=== PATIENT | female | born 1940 | race Caucasian/White ===

== ENCOUNTER 2021-10-02 03:04 | Inpatient (IN) | payer OTHER ==
[2021-10-02] VITALS (9 sets, daily range): BP systolic 104–150; BP diastolic 53–69
[~2021-10-02] VITALS: Ht 172.7 cm; Wt 81.6 kg
[~2021-10-02 03:04] MED LIST changes: -ASPIRIN ADULT L81 M2 PO; -HYDROCODONE-AC1 EAC1 PO
[2021-10-02 03:45] LABS: BASO % 0.4 % (0.0-1.0); EOS # 0.2 10*3/uL (0.0-0.4); EOS % 1.8 % (1.0-4.0); HEMATOCRIT 39.6 % (37.0-47.0); LYMPH # 1.9 10*3/uL (1.3-4.4); LYMPH % 20.1 % (27.0-41.0); MEAN CELL VOLUME 96.4 fl (81.0-99.0); MEAN CORPUSCULAR HGB 30.4 pg (27.0-31.0); MEAN CORPUSCULAR HGB CONC 31.6 g/dl (33.0-37.0); MEAN PLATELET VOLUME 13.2 fl (9.6-12.3); MONO # 0.7 10*3/uL (0.1-1.0); MONO % 7.8 % (3.0-9.0); NEUT # 6.4 10*3/uL (2.3-7.9); NEUT % 69.4 % (47.0-73.0); PLATELET COUNT AUTOMATED 118 10*3/uL (130-400); RED BLOOD COUNT 4.11 10*6/uL (4.10-5.10); RED CELL DISTRI WIDTH 13.1 % (0-14.5); WHITE BLOOD COUNT 9.3 10*3/uL (4.8-10.8)
[2021-10-02 03:58] LABS: CREATININE 1.13 mg/dL (0.55-1.02); POTASSIUM 4.1 mmol/L (3.5-5.1)
[2021-10-03] VITALS: BP 126/54
[2021-10-03 06:49] LABS: BASO % 0.3 % (0.0-1.0); EOS # 0.1 10*3/uL (0.0-0.4); EOS % 1.2 % (1.0-4.0); HEMATOCRIT 34.9 % (37.0-47.0); LYMPH # 2.1 10*3/uL (1.3-4.4); LYMPH % 24.2 % (27.0-41.0); MEAN CELL VOLUME 96.1 fl (81.0-99.0); MEAN CORPUSCULAR HGB 30.9 pg (27.0-31.0); MEAN CORPUSCULAR HGB CONC 32.1 g/dl (33.0-37.0); MEAN PLATELET VOLUME 13.6 fl (9.6-12.3); MONO # 1.3 10*3/uL (0.1-1.0); MONO % 14.1 % (3.0-9.0); NEUT # 5.3 10*3/uL (2.3-7.9); NEUT % 59.9 % (47.0-73.0); PLATELET COUNT AUTOMATED 113 10*3/uL (130-400); RED BLOOD COUNT 3.63 10*6/uL (4.10-5.10); RED CELL DISTRI WIDTH 13.5 % (0-14.5); WHITE BLOOD COUNT 8.8 10*3/uL (4.8-10.8)
[2021-10-03 07:05] LABS: POTASSIUM 4.2 mmol/L (3.5-5.1)
[2021-10-03 07:13] LABS: CREATININE 1.18 mg/dL (0.55-1.02); FREE T4 1.06 ng/dl (0.76-1.46); THYROID STIM HORMONE (HS) 1.95 uIU/ml (0.358-4.75); TOTAL PROTEIN 6.6 gm/dL (6.4-8.2)
[2021-10-03 08:00] VITALS: BP 154/50
[2021-10-03 12:00] VITALS: BP 114/50
[2021-10-03 16:00] VITALS: BP 111/52
[2021-10-03 17:25] VITALS: BP 116/74
[2021-10-03 20:00] VITALS: BP 131/54
[2021-10-04] VITALS: BP 153/61
[2021-10-04 06:28] LABS: BASO % 0.3 % (0.0-1.0); EOS # 0.2 10*3/uL (0.0-0.4); EOS % 1.7 % (1.0-4.0); HEMATOCRIT 34.1 % (37.0-47.0); LYMPH # 2.3 10*3/uL (1.3-4.4); LYMPH % 26.1 % (27.0-41.0); MEAN CELL VOLUME 96.1 fl (81.0-99.0); MEAN CORPUSCULAR HGB 30.7 pg (27.0-31.0); MEAN PLATELET VOLUME 13.3 fl (9.6-12.3); MONO # 1.3 10*3/uL (0.1-1.0); MONO % 14.4 % (3.0-9.0); PLATELET COUNT AUTOMATED 95 10*3/uL (130-400); RED BLOOD COUNT 3.55 10*6/uL (4.10-5.10); RED CELL DISTRI WIDTH 13.4 % (0-14.5); WHITE BLOOD COUNT 8.7 10*3/uL (4.8-10.8)
[2021-10-04 06:42] LABS: BUN 26 mg/dl (7-24); CHLORIDE 105 mmol/L (98-107); CREATININE 0.88 mg/dL (0.55-1.02); POTASSIUM 4.1 mmol/L (3.5-5.1); SODIUM 138 mmol/L (136-145)
[2021-10-04 08:00] VITALS: BP 110/52; BP 137/60
[2021-10-04 12:00] VITALS: BP 121/50
[2021-10-04 16:00] VITALS: BP 124/57
[2021-10-04 20:00] VITALS: BP 111/63
[2021-10-04 23:16] VITALS: BP 107/49
[2021-10-05 06:19] LABS: BASO # 0.1 10*3/uL (0.0-0.1); BASO % 0.5 % (0.0-1.0); EOS # 0.1 10*3/uL (0.0-0.4); EOS % 1.4 % (1.0-4.0); HEMATOCRIT 32.7 % (37.0-47.0); LYMPH # 2.6 10*3/uL (1.3-4.4); LYMPH % 26.7 % (27.0-41.0); MEAN CELL VOLUME 96.2 fl (81.0-99.0); MEAN CORPUSCULAR HGB 30.9 pg (27.0-31.0); MEAN CORPUSCULAR HGB CONC 32.1 g/dl (33.0-37.0); MEAN PLATELET VOLUME 13.7 fl (9.6-12.3); MONO # 1.5 10*3/uL (0.1-1.0); NEUT # 5.5 10*3/uL (2.3-7.9); PLATELET COUNT AUTOMATED 103 10*3/uL (130-400); RED CELL DISTRI WIDTH 13.4 % (0-14.5); WHITE BLOOD COUNT 9.8 10*3/uL (4.8-10.8)
[2021-10-05 08:00] VITALS: BP 150/68
[2021-10-05 12:00] VITALS: BP 117/46
[2021-10-05 16:00] VITALS: BP 147/76
[2021-10-05 20:00] VITALS: BP 144/82
[2021-10-06] VITALS: BP 149/63
[2021-10-06 06:16] LABS: BASO # 0.1 10*3/uL (0.0-0.1); BASO % 0.8 % (0.0-1.0); EOS # 0.2 10*3/uL (0.0-0.4); EOS % 2.5 % (1.0-4.0); HEMATOCRIT 34.2 % (37.0-47.0); LYMPH # 2.7 10*3/uL (1.3-4.4); LYMPH % 29.9 % (27.0-41.0); MEAN CELL VOLUME 95.5 fl (81.0-99.0); MEAN CORPUSCULAR HGB 30.7 pg (27.0-31.0); MEAN CORPUSCULAR HGB CONC 32.2 g/dl (33.0-37.0); MEAN PLATELET VOLUME 13.2 fl (9.6-12.3); MONO # 1.2 10*3/uL (0.1-1.0); MONO % 13.9 % (3.0-9.0); NEUT # 4.7 10*3/uL (2.3-7.9); NEUT % 52.3 % (47.0-73.0); PLATELET COUNT AUTOMATED 123 10*3/uL (130-400); RED BLOOD COUNT 3.58 10*6/uL (4.10-5.10); RED CELL DISTRI WIDTH 13.2 % (0-14.5)
[2021-10-06 06:37] LABS: BUN 26 mg/dl (7-24); CHLORIDE 105 mmol/L (98-107); CREATININE 0.85 mg/dL (0.55-1.02); POTASSIUM 3.9 mmol/L (3.5-5.1); SODIUM 138 mmol/L (136-145)
[2021-10-06 08:00] VITALS: BP 171/87
[2021-10-06 12:00] VITALS: BP 106/59
[2021-10-06 16:00] VITALS: BP 128/50
[2021-10-06 20:00] VITALS: BP 140/68
[2021-10-07] VITALS: BP 150/84
[2021-10-07 06:26] LABS: CHLORIDE 104 mmol/L (98-107); CREATININE 0.77 mg/dL (0.55-1.02); SODIUM 137 mmol/L (136-145)
[2021-10-07 06:49] LABS: BUN 21 mg/dl (7-24)
[2021-10-07 06:54] LABS: BASO # 0.1 10*3/uL (0.0-0.1); BASO % 0.7 % (0.0-1.0); EOS # 0.2 10*3/uL (0.0-0.4); EOS % 2.4 % (1.0-4.0); LYMPH # 2.8 10*3/uL (1.3-4.4); LYMPH % 28.3 % (27.0-41.0); MEAN CELL VOLUME 94.7 fl (81.0-99.0); MEAN CORPUSCULAR HGB 30.9 pg (27.0-31.0); MEAN CORPUSCULAR HGB CONC 32.6 g/dl (33.0-37.0); MEAN PLATELET VOLUME 13.4 fl (9.6-12.3); MONO # 1.5 10*3/uL (0.1-1.0); MONO % 14.8 % (3.0-9.0); NEUT # 5.3 10*3/uL (2.3-7.9); RED BLOOD COUNT 3.59 10*6/uL (4.10-5.10); RED CELL DISTRI WIDTH 13.3 % (0-14.5); WHITE BLOOD COUNT 9.9 10*3/uL (4.8-10.8)
[2021-10-07 06:56] LABS: PLATELET COUNT AUTOMATED 166 10*3/uL (130-400)
[2021-10-07 08:07] VITALS: BP 148/78
[2021-10-07] MEDS ORDERED: HYDROCODONE-AC1 EAC1 PO (11:44)
[2021-10-07] MEDS ORDERED: ASPIRIN ADULT L81 M2 PO (11:44)
[2021-10-07 12:00] VITALS: BP 118/76
== END 2021-10-07 16:05 | DRG 480 ==
LOC: ED 03:04 → 4E 04:25 → EDHOLD 04:25 → 4E 11:48
PROVIDERS: Internal Medicine; Orthopaedic Surgery; Student in an Organized Health Care Education/Training Program; ADMIT Internal Medicine; ATTEND Internal Medicine
PROC: 0QS606Z Reposition Right Upper Femur with Intramedullary Internal Fixation Device, Open Approach (ICD-10-PCS; principal; 2021-10-02)
PROC: 3E0T3BZ Introduction of Anesthetic Agent into Peripheral Nerves and Plexi, Percutaneous Approach (ICD-10-PCS; 2021-10-02)
DX: S72.144A Nondisplaced intertrochanteric fracture of right femur, initial encounter for closed fracture (principal); N17.0 Acute kidney failure with tubular necrosis; E43 Unspecified severe protein-calorie malnutrition; I13.0 Hypertensive heart and chronic kidney disease with heart failure and stage 1 through stage 4 chronic kidney disease, or unspecified chronic kidney disease; E83.41 Hypermagnesemia; N18.9 Chronic kidney disease, unspecified; R73.9 Hyperglycemia, unspecified; R26.2 Difficulty in walking, not elsewhere classified; D69.6 Thrombocytopenia, unspecified; I50.9 Heart failure, unspecified; Z20.822 Contact with and (suspected) exposure to COVID-19; Z90.710 Acquired absence of both cervix and uterus; Z82.49 Family history of ischemic heart disease and other diseases of the circulatory system; Z82.5 Family history of asthma and other chronic lower respiratory diseases; Z95.810 Presence of automatic (implantable) cardiac defibrillator; Z79.899 Other long term (current) drug therapy

== ENCOUNTER → 2021-10-02 | Day surgery (SDC) | payer OTHER ==
[~2021-10-02] VITALS: Ht 172.7 cm; Wt 70.3 kg
[~2021-10-02] MED LIST: AMBIEN10 M1 PO; ASPIRIN ADULT L81 M2 PO; CARVEDILOL12.5 MG PO; Depakote250 MG PO; ENTRESTO 49 MG1 EACH PO; HYDROCODONE-AC1 EAC1 PO; MAGNESIUM-VIT1 EAC1 PO; SIMVASTATIN40 MG PO; SYNTHROID,LEV125 MCG PO; VICODIN 500 MG-1 TAB PO
== END | disposition home or self-care (01) ==
LOC: SDC 09-27 09:30
PROVIDERS: ATTEND Ophthalmology
DX: H25.811 Combined forms of age-related cataract, right eye (principal); I11.0 Hypertensive heart disease with heart failure; I50.9 Heart failure, unspecified; F31.9 Bipolar disorder, unspecified; Z90.710 Acquired absence of both cervix and uterus; Z95.810 Presence of automatic (implantable) cardiac defibrillator; Z79.899 Other long term (current) drug therapy

== ENCOUNTER → 2021-10-18 | Outpatient (CLI) | payer OTHER ==
[~2021-10-18] MED LIST changes: +ASPIRIN ADULT L81 M2 PO; +HYDROCODONE-AC1 EAC1 PO
== END ==
LOC: ORTHO 00:26
PROVIDERS: ATTEND Orthopaedic Surgery
DX: S72.144D Nondisplaced intertrochanteric fracture of right femur, subsequent encounter for closed fracture with routine healing (principal); X58.XXXD Exposure to other specified factors, subsequent encounter

== ENCOUNTER → 2022-08-19 | Outpatient (CLI) | payer OTHER | END | disposition home or self-care (01) | LOC: CARD 08-13 09:30 | PROVIDERS: ATTEND Physician Assistant | DX: I35.1 Nonrheumatic aortic (valve) insufficiency (principal); I50.20 Unspecified systolic (congestive) heart failure; Z79.899 Other long term (current) drug therapy ==

== ENCOUNTER 2025-06-17 20:14 | Emergency (ER) | payer MEDICARE ==
[~2025-06-17] VITALS: Wt 72.5 kg
[2025-06-17] MEDS ORDERED: SUPER B-50 COM1 EAC2 PO (20:26)
[2025-06-17] MEDS ORDERED: ELIQUIS2.5 M1 PO (20:26)
[2025-06-17] MEDS ORDERED: [UNRECOGNIZED DRUG - OTHER] PO (20:27)
[2025-06-17] MEDS ORDERED: CALCIUM PO (20:27)
[2025-06-17] MEDS ORDERED: VITAMIN D325 MC1 PO (20:27)
[2025-06-17] MEDS ORDERED: ZOLOFT100 MG PO (20:28)
[2025-06-17] MEDS ORDERED: MAGNESIUM500 MG PO (20:28)
[2025-06-17] MEDS ORDERED: FUROSEMIDE40 MG PO (20:29)
[2025-06-17 20:37] LABS: BASO # 0.1 10*3/uL (0.0-0.1); BASO % 0.7 % (0.0-1.0); EOS # 0.2 10*3/uL (0.0-0.4); EOS % 2.5 % (1.0-4.0); MEAN CELL VOLUME 95.1 fl (81.0-99.0); MEAN CORPUSCULAR HGB 29.4 pg (27.0-31.0); MEAN PLATELET VOLUME 12.6 fl (9.6-12.3); MONO # 0.9 10*3/uL (0.1-1.0); MONO % 10.7 % (3.0-9.0); NEUT # 4.6 10*3/uL (2.3-7.9); NEUT % 56.5 % (47.0-73.0); NUCLEATED RED BLOOD CELL 0.0 % (0.0-0.0); NUCLEATED RED BLOOD CELL 0.0 10*3/uL (0.0-0.0); PLATELET COUNT AUTOMATED 135 10*3/uL (130-400); RED CELL DISTRI WIDTH 14.2 % (0-14.5)
[2025-06-17 20:57] LABS: BUN 19.0 mg/dl (9-23)
[2025-06-17 20:57] LABS: BILIRUBIN Negative (Negative); BLOOD Negative (Negative); CLARITY Clear (Clear); COLOR Dark Yellow (Yellow); KETONE Negative (Negative); LEUKO ESTERASE 1+ (Negative); NITRITE Negative (Negative); PH 6.0 (4.5-8.0); SPECIFIC GRAVITY 1.020 (1.001-1.030); UROBILINOGEN 0.2 E.U./dl (0.0-1.0)
[2025-06-17 21:11] LABS: BACTERIA 2+; MUCOUS TRACE
[2025-06-17] MEDS ORDERED: Ciprofloxacin Hydrochloride 500 MG TAB PO ONE ×3 (21:20→21:25)
[2025-06-17] MEDS ORDERED: CIPRO500 MG PO (21:21)
== END 2025-06-17 21:36 | disposition home or self-care (01) ==
LOC: ED 20:14
PROVIDERS: Internal Medicine
DX: N39.0 Urinary tract infection, site not specified (principal); N17.9 Acute kidney failure, unspecified; D64.9 Anemia, unspecified; I13.0 Hypertensive heart and chronic kidney disease with heart failure and stage 1 through stage 4 chronic kidney disease, or unspecified chronic kidney disease; N18.9 Chronic kidney disease, unspecified; I50.9 Heart failure, unspecified; R44.3 Hallucinations, unspecified; Z79.899 Other long term (current) drug therapy; Z90.710 Acquired absence of both cervix and uterus; Z95.810 Presence of automatic (implantable) cardiac defibrillator; Z90.711 Acquired absence of uterus with remaining cervical stump

== ENCOUNTER 2025-08-22 19:55 | Emergency (ER) | payer MEDICARE ==
[~2025-08-22] VITALS: Ht 172.7 cm; Wt 72.6 kg
[~2025-08-22 19:55] MED LIST changes: +CALCIUM PO; +CIPRO500 MG PO; +ELIQUIS2.5 M1 PO; +FUROSEMIDE40 MG PO; +MAGNESIUM500 MG PO; +SUPER B-50 COM1 EAC2 PO; +VITAMIN D325 MC1 PO; +ZOLOFT100 MG PO; +[UNRECOGNIZED DRUG - OTHER] PO
[2025-08-22] MEDS ORDERED: SODIUM CHLORIDE 0.9% 1,000 ML IV SCH (21:00)
[2025-08-22] MEDS ORDERED: ACETAMINOPHEN 325 MG TAB PO ONE (21:00)
[2025-08-22 21:22] LABS: BILIRUBIN Negative (Negative); BLOOD Negative (Negative); CLARITY Clear (Clear); COLOR Dark Yellow (Yellow); KETONE Trace (Negative); LEUKO ESTERASE Negative (Negative); NITRITE Negative (Negative); PH 5.5 (4.5-8.0); SPECIFIC GRAVITY 1.020 (1.001-1.030); UROBILINOGEN 1.0 E.U./dl (0.0-1.0)
[2025-08-22 21:33] LABS: MEAN CELL VOLUME 92.5 fl (81.0-99.0); MEAN CORPUSCULAR HGB 29.2 pg (27.0-31.0); MEAN PLATELET VOLUME 12.4 fl (9.6-12.3); NUCLEATED RED BLOOD CELL 0.0 % (0.0-0.0); NUCLEATED RED BLOOD CELL 0.0 10*3/uL (0.0-0.0); PLATELET COUNT AUTOMATED 148 10*3/uL (130-400); RED CELL DISTRI WIDTH 14.9 % (0-14.5)
[2025-08-22 21:40] LABS: MANUAL DIFF REFLEX YES
[2025-08-22 21:46] LABS: HYALINE CAST 0-2; MUCOUS 2+; RBC 0-2 rbc/hpf (0-2)
[2025-08-22 21:57] LABS: BUN 20.0 mg/dl (9-23); SGPT/ALT 8.0 U/L (5-49)
[2025-08-22 22:13] LABS: PLATELET SUFFICIENCY NORMAL (NORMAL)
[2025-08-22] MEDS ORDERED: AZITHROMYCIN 250 MG TAB PO ONE (23:40)
[2025-08-22] MEDS ORDERED: ZITHROMAX250 MG PO (23:42)
== END 2025-08-22 23:51 | disposition home or self-care (01) ==
LOC: ED 19:55
PROVIDERS: Nurse Practitioner
DX: R53.1 Weakness (principal); E86.0 Dehydration; I11.0 Hypertensive heart disease with heart failure; I50.9 Heart failure, unspecified; E03.9 Hypothyroidism, unspecified; F31.9 Bipolar disorder, unspecified; Z90.710 Acquired absence of both cervix and uterus